=== PATIENT | male | born 1935 | race Caucasian/White ===

== ENCOUNTER 2017-12-06 07:55 | Outpatient (CLI) | payer MEDICARE ==
[2017-12-06 10:30] LABS: BASOPHILS % (AUTO) 0.3 %; EOSINOPHILS # (AUTO) 0.2 10^3/uL (0.0-0.7); EOSINOPHILS % (AUTO) 2.5 %; HGB - HEMOGLOBIN 13.7 g/dL (14.0-18.0); LYMPHOCYTES # (AUTO) 1.9 10^3/uL (1.5-3.5); LYMPHOCYTES % (AUTO) 22.9 %; MEAN CORPUSCULAR HEMOGLOBIN 31.6 pg (27.0-31.0); MEAN CORPUSCULAR HGB CONC 34.2 g/dL (32.0-36.0); MEAN CORPUSCULAR VOLUME 92.4 fL (80.0-94.0); MEAN PLATELET VOLUME 7.5 fL (7.4-11.4); MONOCYTES # (AUTO) 0.6 10^3/uL (0.0-1.0); NEUTROPHILS # (AUTO) 5.6 10^3/uL (1.5-6.6); NEUTROPHILS % (AUTO) 67.3 %; PLT - PLATELET COUNT 207 10^3/uL (130-450); RED BLOOD COUNT 4.34 10^6/uL (4.70-6.10); RED CELL DISTRIBUTION WIDTH 15.5 % (12.0-15.0); WHITE BLOOD COUNT 8.3 x10^3/uL (4.8-10.8)
[2017-12-06 10:45] LABS: ALBUMIN 4.1 g/dL (3.2-5.5); ALBUMIN/GLOBULIN RATIO 1.6 (1.0-2.2); ALKALINE PHOSPHATASE 62 IU/L (42-121); ALT ALANINE AMINOTRANSFERASE 14 IU/L (10-60); AST ASPARTATE AMINOTRANSFERASE 18 IU/L (10-42); BILIRUBIN,TOTAL 0.9 mg/dL (0.2-1.0); BUN - BLOOD UREA NITROGEN 23 mg/dL (6-20); CALCIUM 9.6 mg/dL (8.5-10.3); CARBON DIOXIDE - CO2 29 mmol/L (21-32); CHLORIDE 106 mmol/L (101-111); CHOL/HDL RATIO 3.1 (<5.0); CHOLESTEROL 201 mg/dL; GFR - MDRD 71 (>89); GLUCOSE 100 mg/dL (70-100); HDL CHOLESTEROL 65 mg/dL; LDL CHOLESTEROL,CALCULATED 119 mg/dL; LDL/HDL RATIO 1.8 (<3.6); SODIUM 141 mmol/L (135-145); TOTAL PROTEIN 6.7 g/dL (6.7-8.2); URIC ACID 5.7 mg/dL (2.6-7.2); VLDL CHOLESTEROL 17 mg/dL
== END 2017-12-06 07:56 | disposition home or self-care (01) ==
LOC: LAB.F 07:55
PROVIDERS: ATTEND Internal Medicine
DX: F33.2 Major depressive disorder, recurrent severe without psychotic features (principal); E78.5 Hyperlipidemia, unspecified; M10.9 Gout, unspecified; I10 Essential (primary) hypertension; Z79.899 Other long term (current) drug therapy
CPT/HCPCS: 36415; 80053; 80061; 83721; 84443; 84550; 85025

== ENCOUNTER 2018-02-14 07:36 | Outpatient (CLI) | payer MEDICARE ==
[2018-02-14 11:12] LABS: ALT ALANINE AMINOTRANSFERASE 17 IU/L (10-60); AST ASPARTATE AMINOTRANSFERASE 19 IU/L (10-42); LDL CHOLESTEROL,DIRECT 73 mg/dL
== END 2018-02-14 07:37 | disposition home or self-care (01) ==
LOC: LAB.F 07:36
PROVIDERS: ATTEND Internal Medicine
DX: E78.5 Hyperlipidemia, unspecified (principal)
CPT/HCPCS: 36415; 83721; 84450; 84460

== ENCOUNTER 2018-03-15 07:59 | Outpatient (CLI) | payer MEDICARE ==
[2018-03-15 08:18] LABS: CREATININE 1.1 mg/dL (0.6-1.2)
[2018-03-15] MEDS ORDERED: IOPAMIDOL-300 100 ML VIAL ONE (08:52)
[2018-03-15] MEDS ORDERED: IOPAMIDOL-300 100 ML VIAL IVP ONE (10:33)
--- NOTE | 2018-03-15 13:14 | CT Report ---
Procedure Date: 03/15/2018 Accession Number: [id number] / [id number] Procedure: CT - Abdomen/Pelvis W/WO CPT Code: FULL RESULT: EXAM: Abdomen/Pelvis W/WO DATE: 03/15/2018 10:53 AM CLINICAL HISTORY: HEMATURIA,GROSS COMPARISON: 08/28/2011 TECHNIQUE: Routine helical imaging was performed through the kidneys, ureters and bladder in the precontrast and postcontrast phases, using split bolus technique. IV Contrast: 100 mL Isovue 300 Reconstructions: Coronal and sagittal. In accordance with CT protocol optimization, one or more of the following dose reduction techniques were utilized for this exam: automated exposure control, adjustment of mA and/or KV based on patient size, or use of iterative reconstructive technique. FINDINGS: Lung Bases: Mild atelectasis. Right Kidney/Ureter: 2 mm calculus. Small cortical cysts. No evidence of solid renal mass. Left Kidney/Ureter: Left hydronephrosis and nephrolithiasis, with increase in size of the largest stones in the lower pole, now measuring 1.6 cm. Dilated left renal pelvis, without evidence of an obstructing calculus, similar to previous. Other Solid Organs: The liver, spleen, pancreas, gallbladder, and adrenal glands are unremarkable. The bile ducts are unremarkable. Peritoneal Cavity/Bowel: Normal. No free fluid, free air or adenopathy. No masses. Bowel loops are unremarkable. Pelvic Organs: No bladder stones, obstruction or masses. The visualized pelvic organs are unremarkable. Vasculature: Normal. Bones: Normal. Other: None. IMPRESSION: Left greater than right nephrolithiasis. Left hydronephrosis and dilated renal pelvis, without evidence of an obstructing stone. If not previously performed, consider left retrograde to evaluate for a proximal ureteric lesion. RADIA
== END 2018-03-15 08:00 | disposition home or self-care (01) ==
LOC: DI 07:59
PROVIDERS: ATTEND Internal Medicine
DX: N20.0 Calculus of kidney (principal); N13.30 Unspecified hydronephrosis; Z79.899 Other long term (current) drug therapy
CPT/HCPCS: 36415; 74178; 82565; Q9967

== ENCOUNTER 2018-10-03 12:13 | Outpatient (CLI) | payer MEDICARE ==
[2018-10-03 18:08] LABS: CALCIUM 9.8 mg/dL (8.5-10.3); CREATININE 1.1 mg/dL (0.6-1.2)
== END 2018-10-03 12:14 | disposition home or self-care (01) ==
LOC: LAB.F 12:13
PROVIDERS: ATTEND Internal Medicine
DX: I10 Essential (primary) hypertension (principal)
CPT/HCPCS: 36415; 80048

== ENCOUNTER 2018-10-11 12:07 | Outpatient (CLI) | payer MEDICARE | END 2018-10-11 12:08 | disposition home or self-care (01) | LOC: EMS 12:07 | PROVIDERS: ATTEND Surgery | DX: S01.01XA Laceration without foreign body of scalp, initial encounter (principal); R41.82 Altered mental status, unspecified; R11.0 Nausea; W01.0XXA Fall on same level from slipping, tripping and stumbling without subsequent striking against object, initial encounter; Y92.008 Other place in unspecified non-institutional (private) residence as the place of occurrence of the external cause | CPT/HCPCS: A0425; A0429 ==

== ENCOUNTER 2018-10-11 12:42 | Emergency (ER) | payer MEDICARE ==
--- NOTE | 2018-10-11 12:55 | ED Physician Documentation ---
PD HPI SYNCOPE - Stated complaint Stated Complaint: SYNCOPE - Chief complaint Chief Complaint: General - History obtained from History obtained from: Patient - History of Present Illness Witnessed: Witnessed (he was helping someone carry small furniture and patient says he started to loose footing, stepped backward to try to gain balance, and fell back, striking back of head. Possible moment of LOC. Has some headache. Has marked dizziness/vertigo with ROM of the head after the injury. No vertigo prior.) Timing - onset: Today Preceding symptoms: Other (had tripped and fallen backward, struck back of head.). No: Headache, Light headed Associated symptoms: Headache, Nausea / vomiting (associated with vertigo). No: Seizure, Chest pain, Abdominal pain Contributing factors: No: Recent med change, Decreased PO intake, Noxious stimulae Injury occurred: Fell, Head injury. No: Neck injury Similar symptoms before: Has not had sx before Recently seen: Not recently seen Review of Systems Constitutional: denies: Fever, Chills Nose: denies: Rhinorrhea / runny nose, Congestion Throat: denies: Sore throat Respiratory: denies: Cough GI: reports: Vomiting (just with the vertigo since the fall). denies: Abdominal Pain, Diarrhea PD PAST MEDICAL HISTORY - Past Medical History Cardiovascular: Hypertension Respiratory: None, Other Neuro: None Endocrine/Autoimmune: None GI: None : Benign prostate hypertrophy, Kidney stones, Other HEENT: None Psych: Depression Musculoskeletal: Gout Derm: Other - Past Surgical History Past Surgical History: Yes General: Colonoscopy - Present Medications Home Medications: Ambulatory Orders Medication Instructions Recorded Confirmed Allopurinol 300 mg PO DAILY 01/12/14 07/05/15 Aspirin Chewable [[place]il[place] 324 mg PO ONCE 01/12/14 07/01/15 Aspirin] Losartan [Cozaar] 100 mg PO DAILY 01/12/14 07/05/15 Potassium Chloride [Micro-K] 20 meq PO 0800 01/12/14 07/05/15 Pravastatin Sodium 40 mg PO DAILY 01/12/14 07/05/15 Triamterene/Hydrochlorothiazid 1 tab PO DAILY 01/12/14 07/05/15 [Triamterene-Hctz 37.5-25 mg Tb] Vit D3/Folic Acid/B2/B6/B12 2,000 mg PO DAILY 01/12/14 07/05/15 [Folgard Tablet] Cefpodoxime Proxetil [Vantin] 100 mg PO Q12H #14 tablet 07/09/15 Phenazopyridine HCl [Pyridium] 200 mg PO TID PRN #6 tablet 07/09/15 Meclizine [Antivert] 25 mg PO Q6H PRN #30 tablet 10/11/18 Potassium Bicarbonate 25 meq PO DAILY #30 tablet 10/11/18 [K-Effervescent] - Allergies Allergies/Adverse Reactions: Allergies Allergy/AdvReac Type Severity Reaction Status Date / Time clonidine AdvReac Severe Paranoia Verified 07/09/15 21:59 terazosin AdvReac Intermediate Dizziness Verified 07/09/15 21:59 - Social History Does the pt smoke?: No Smoking Status: Never smoker Does the pt drink ETOH?: Yes Does the pt have substance abuse?: No - Immunizations Immunizations are current?: Yes PD ED PE NORMAL - Vitals Vital signs reviewed: Yes - General General: Alert and oriented X 3, Well developed/nourished, Other (seems okay lying still. Has considerabel vertigo with head movement.) - HEENT HEENT: PERRL, EOMI (some nystagmus looking to the right. ), Pharynx benign, Other (slightly tender in back of head, with small laceration 1 cm, with slight oozing of bllod. No FB. 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, No motor deficit, No sensory deficit, Normal speech Eye Opening: Spontaneous Motor: Obeys Commands Verbal: Oriented GCS Score: 15 Results - Vitals Vitals: Oxygen O2 Source Room air - Labs Labs: Laboratory Tests 10/11/18 10/11/18 13:22 13:22 WBC 7.8 RBC 4.04 L Hgb 13.0 L Hct 36.9 L MCV 91.2 MCH 32.2 H MCHC 35.3 RDW 14.5 Plt Count 184 MPV 7.0 L Neut # (Auto) 5.7 Lymph # (Auto) 1.4 L [place] # (Auto) 0.5 Eos # (Auto) 0.2 Baso # (Auto) 0.0 Absolute Nucleated RBC 0.01 Nucleated RBC % 0.1 Sodium 136 Potassium 3.0 L Chloride 102 Carbon Dioxide 28 Anion Gap 6.0 BUN 26 H Creatinine 1.0 Estimated GFR (MDRD) 71 L Glucose 106 H Calcium 9.2 Magnesium 2.1 Total Bilirubin 0.7 AST 25 ALT 24 Alkaline Phosphatase 66 Total Protein 6.5 L Albumin 3.7 Globulin 2.8 Albumin/Globulin Ratio 1.3 Lipase 33 - Rads (name of study) head CT Radiology: Prelim report reviewed (no acute process), See rad report cervical spine CT Radiology: Prelim report reviewed (no fractures nor acute process), See rad report Procedures - Laceration (location) occiput Length in cm: 1 Wound type: Linear, Into subcut fat, Clean Anesthesia: Lidocaine 1% with epi Wound Preparation: Irrigated copiously NS, Wound explored, To the base. No: FB identified Skin layer closure: Aurelio PD MEDICAL DECISION MAKING - ED course Complexity details: re-evaluated patient (symptoms improved well with time and PO meds. Able to sit and look around comfortable..), considered differential (he had significant post injury vertigo, without other focal symptoms, so seemed like traumatic labyrynthitis rather than cerebellar concussion.), d/w patient Departure - Departure Disposition: 01 Home, Self Care Clinical Impression: Posttraumatic vertigo Fall from slip, trip, or stumble Qualifiers: Encounter type: initial encounter Qualified Code(s): W01.0XXA - Fall on same level from slipping, tripping and stumbling without subsequent striking against object, initial encounter Head contusion Qualifiers: Encounter type: initial encounter Contusion of head detail: scalp Qualified Code(s): S00.03XA - Contusion of scalp, initial encounter Mild concussion Qualifiers: Encounter type: initial encounter Loss of consciousness presence/duration: with LOC of 30 min or less Qualified Code(s): S06.0X1A - Concussion with loss of consciousness of 30 minutes or less, initial encounter Condition: Stable Record reviewed to determine appropriate education?: Yes Instructions: ED Concussion Follow-Up: Juanito Hendrickson MD [Primary Care Provider] - Prescriptions: Meclizine [Antivert] 25 mg PO Q6H PRN #30 tablet PRN Reason: Vertigo Potassium Bicarbonate [K-Effervescent] 25 meq PO DAILY #30 tablet Comments: My suture care instructions staple removal 8-10 days. Your potassium was slightly low and you can add a potassium supplement. I wrote a prescription and see if it is cheaper than the other ones you are getting. For the dizziness, use meclizine every 6-8 hours if needed. Get up and move around slowly for the next few days until the irritation of the inner ear from the injury dissipates. Recheck if not better over the next few days or so. Discharge Date/Time: 10/11/18 16:39
[2018-10-11] MEDS ORDERED: LORazepam 2 MG/ML VIAL IVP STA (13:22)
[2018-10-11] MEDS ORDERED: MECLIZINE 12.5 MG TABLET PO STA (13:22)
[2018-10-11 13:33] LABS: BASOPHILS % (AUTO) 0.5 %; EOSINOPHILS # (AUTO) 0.2 10^3/uL (0.0-0.7); EOSINOPHILS % (AUTO) 2.2 %; LYMPHOCYTES # (AUTO) 1.4 10^3/uL (1.5-3.5); LYMPHOCYTES % (AUTO) 18.3 %; MEAN CORPUSCULAR HEMOGLOBIN 32.2 pg (27.0-31.0); MEAN CORPUSCULAR HGB CONC 35.3 g/dL (32.0-36.0); MEAN CORPUSCULAR VOLUME 91.2 fL (80.0-94.0); MONOCYTES # (AUTO) 0.5 10^3/uL (0.0-1.0); MONOCYTES % (AUTO) 6.3 %; NEUTROPHILS # (AUTO) 5.7 10^3/uL (1.5-6.6); NEUTROPHILS % (AUTO) 72.7 %; PLT - PLATELET COUNT 184 10^3/uL (130-450); RED BLOOD COUNT 4.04 10^6/uL (4.70-6.10); RED CELL DISTRIBUTION WIDTH 14.5 % (12.0-15.0); WHITE BLOOD COUNT 7.8 x10^3/uL (4.8-10.8)
[2018-10-11 13:46] LABS: ALBUMIN 3.7 g/dL (3.2-5.5); ALBUMIN/GLOBULIN RATIO 1.3 (1.0-2.2); BILIRUBIN,TOTAL 0.7 mg/dL (0.2-1.0); CALCIUM 9.2 mg/dL (8.5-10.3); MAGNESIUM 2.1 mg/dL (1.7-2.8); TOTAL PROTEIN 6.5 g/dL (6.7-8.2)
[2018-10-11] MEDS ORDERED: POTASSIUM BICARB 25 MEQ TABLET PO STA (14:38)
--- NOTE | 2018-10-11 14:42 | CT Report ---
Reason: fell carrying furniture, struck back of head Procedure Date: 10/11/2018 Accession Number: [id number] / [id number] Procedure: CT - Cervical Spine W/O CPT Code: FULL RESULT: EXAM: CT CERVICAL SPINE WITHOUT CONTRAST DATE: 10/11/2018 02:24 PM. HISTORY: Fell carrying furniture, struck back of head. COMPARISONS: None. TECHNIQUE: Thin-section axial images were acquired of the cervical spine without contrast. Post-processing: Coronal and sagittal reformats. Other: None. In accordance with CT protocol optimization, one or more of the following dose reduction techniques were utilized for this exam: automated exposure control, adjustment of mA and/or KV based on patient size, or use of iterative reconstructive technique. FINDINGS: Alignment: No evidence of dislocation. Bones: No fracture or bone lesion. 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 Spinal canal: No significant abnormalities are seen. Other: No evidence of prevertebral soft tissue swelling or apical pneumothorax. IMPRESSION: No evidence of cervical spine fracture or dislocation. RADIA
--- NOTE | 2018-10-11 14:43 | CT Report ---
Reason: fell carrying furniture, struck back of head Procedure Date: 10/11/2018 Accession Number: [id number] / [id number] Procedure: CT - Head W/O CPT Code: FULL RESULT: EXAM: CT HEAD EXAM DATE: 10/11/2018 02:08 PM. CLINICAL HISTORY: Fell carrying furniture, struck back of head. COMPARISON: None. TECHNIQUE: Multiaxial CT images were obtained from the foramen magnum to the vertex. Reformats: Sagittal and coronal. IV contrast: None. In accordance with CT protocol optimization, one or more of the following dose reduction techniques were utilized for this exam: automated exposure control, adjustment of mA and/or KV based on patient size, or use of iterative reconstructive technique. FINDINGS: Parenchyma: No intraparenchymal hemorrhage. No evidence of mass, midline shift, or CT findings of infarction. Proctor-white differentiation is distinct. Extraaxial Spaces: Normal for age. No subdural or epidural collections identified. Ventricles: Normal in size and position. Sinuses and Orbits: There is mild opacification of the left ethmoid sinuses. Bones: No evidence of fracture or calvarial defect. Other: None. IMPRESSION: No acute intracranial CT abnormality. RADIA
[2018-10-11 16:38] VITALS: BP 169/89
== END 2018-10-11 16:39 | disposition home or self-care (01) ==
LOC: EDUNIT# → ED 12:42
DX: S06.0X1A Concussion with loss of consciousness of 30 minutes or less, initial encounter (principal); S01.01XA Laceration without foreign body of scalp, initial encounter; R42 Dizziness and giddiness; W01.10XA Fall on same level from slipping, tripping and stumbling with subsequent striking against unspecified object, initial encounter; Y93.89 Activity, other specified; I10 Essential (primary) hypertension; Z79.82 Long term (current) use of aspirin
CPT/HCPCS: 12001; 36415; 70450; 72125; 80053; 83690; 83735; 85025; 93005; 96374; 99284; A9270; J2060

== ENCOUNTER 2019-07-07 08:00 | Outpatient (CLI) | payer MEDICARE | END 2019-07-07 23:59 | disposition home or self-care (01) | LOC: LAB.R 08:00 | PROVIDERS: ATTEND Registered Nurse | DX: L03.317 Cellulitis of buttock (principal) | CPT/HCPCS: 87070; 87075; 87147; 87186; 87205 ==

== ENCOUNTER 2019-08-01 08:54 | Outpatient (CLI) | payer MEDICARE ==
[2019-08-01 17:24] LABS: BASOPHILS % (AUTO) 0.4 %; EOSINOPHILS # (AUTO) 0.2 10^3/uL (0.0-0.7); EOSINOPHILS % (AUTO) 2.7 %; HGB - HEMOGLOBIN 14.1 g/dL (14.0-18.0); LYMPHOCYTES % (AUTO) 24.1 %; MEAN CORPUSCULAR HEMOGLOBIN 31.9 pg (27.0-31.0); MEAN CORPUSCULAR HGB CONC 32.4 g/dL (32.0-36.0); MEAN CORPUSCULAR VOLUME 98.4 fL (80.0-94.0); MEAN PLATELET VOLUME 10.4 fL (7.4-11.4); MONOCYTES # (AUTO) 0.6 10^3/uL (0.0-1.0); MONOCYTES % (AUTO) 7.2 %; NEUTROPHILS # (AUTO) 5.4 10^3/uL (1.5-6.6); NEUTROPHILS % (AUTO) 65.1 %; PLT - PLATELET COUNT 199 10^3/uL (130-450); RED BLOOD COUNT 4.42 10^6/uL (4.70-6.10); RED CELL DISTRIBUTION WIDTH 14.5 % (12.0-15.0); WHITE BLOOD COUNT 8.2 x10^3/uL (4.8-10.8)
[2019-08-01 17:37] LABS: ALBUMIN 4.1 g/dL (3.2-5.5); ALBUMIN/GLOBULIN RATIO 1.4 (1.0-2.2); ALKALINE PHOSPHATASE 76 IU/L (42-121); ALT ALANINE AMINOTRANSFERASE 17 IU/L (10-60); AST ASPARTATE AMINOTRANSFERASE 20 IU/L (10-42); BILIRUBIN,TOTAL 0.9 mg/dL (0.2-1.0); BUN - BLOOD UREA NITROGEN 24 mg/dL (6-20); CALCIUM 9.7 mg/dL (8.5-10.3); CARBON DIOXIDE - CO2 29 mmol/L (21-32); CHLORIDE 105 mmol/L (101-111); CHOL/HDL RATIO 2.4 (<5.0); CHOLESTEROL 177 mg/dL; GFR - MDRD 71 (>89); GLUCOSE 101 mg/dL (70-100); HDL CHOLESTEROL 73 mg/dL; LDL CHOLESTEROL,CALCULATED 80 mg/dL; LDL/HDL RATIO 1.1 (<3.6); SODIUM 140 mmol/L (135-145); VLDL CHOLESTEROL 24 mg/dL
[2019-08-01 17:39] LABS: HB2 TOTAL 14.2 g/dL; HEMOGLOBIN A1C 0.57 g/dL; HEMOGLOBIN A1C % 5.8 % (4.6-6.2)
== END 2019-08-01 08:55 | disposition home or self-care (01) ==
LOC: LAB.S 08:54
PROVIDERS: ATTEND Registered Nurse
DX: F32.9 Major depressive disorder, single episode, unspecified (principal); F41.9 Anxiety disorder, unspecified; E87.6 Hypokalemia; E78.5 Hyperlipidemia, unspecified; I10 Essential (primary) hypertension; R31.0 Gross hematuria
CPT/HCPCS: 36415; 80053; 80061; 83036; 83721; 84443; 85025

== ENCOUNTER 2020-12-31 11:20 | Outpatient (CLI) | payer MEDICARE ==
[2020-12-31 16:23] LABS: ALBUMIN 4.2 g/dL (3.2-5.5); ALBUMIN/GLOBULIN RATIO 1.6 (1.0-2.2); ALKALINE PHOSPHATASE 62 IU/L (42-121); ALT ALANINE AMINOTRANSFERASE 14 IU/L (10-60); AST ASPARTATE AMINOTRANSFERASE 16 IU/L (10-42); BUN - BLOOD UREA NITROGEN 29 mg/dL (6-20); CALCIUM 10.1 mg/dL (8.5-10.3); CARBON DIOXIDE - CO2 27 mmol/L (21-32); CHLORIDE 106 mmol/L (101-111); CHOL/HDL RATIO 2.7 (<5.0); CHOLESTEROL 187 mg/dL; CREATININE 1.1 mg/dL (0.6-1.2); GFR - MDRD 63 (>89); GLUCOSE 101 mg/dL (70-100); HDL CHOLESTEROL 70 mg/dL; LDL CHOLESTEROL,CALCULATED 101 mg/dL; LDL/HDL RATIO 1.4 (<3.6); POTASSIUM 3.8 mmol/L (3.5-5.0); SODIUM 140 mmol/L (135-145); TOTAL PROTEIN 6.8 g/dL (6.7-8.2); TRIGLYCERIDES 80 mg/dL; VLDL CHOLESTEROL 16 mg/dL
[2020-12-31 16:25] LABS: THYROID STIMULATING HORMONE 2.62 uIU/mL (0.34-5.60)
== END 2020-12-31 11:21 | disposition home or self-care (01) ==
LOC: LAB.S 11:20
PROVIDERS: ATTEND Family Medicine
DX: R41.89 Other symptoms and signs involving cognitive functions and awareness (principal); I10 Essential (primary) hypertension; E78.2 Mixed hyperlipidemia; E55.9 Vitamin D deficiency, unspecified
CPT/HCPCS: 36415; 80053; 80061; 81599; 82306; 82607; 82746; 83721; 84443

== ENCOUNTER 2022-06-17 07:19 | Emergency (ER) | payer MEDICARE ==
[2022-06-17] MEDS ORDERED: SODIUM CHLORIDE 0.9% 500 ML IV STA (07:44)
[2022-06-17] MEDS ORDERED: ONDANSETRON 4 MG/2 ML VIAL IVP STA (07:44)
[2022-06-17] MEDS ORDERED: MORPHINE 2 MG/ML CARPUJECT IVP STA ×2 (07:44→08:45)
--- NOTE | 2022-06-17 07:47 | ED Physician Documentation ---
PD HPI ABD PAIN - Stated complaint Stated Complaint: L SIDE PAIN - Chief complaint Chief Complaint: Abd Pain - History obtained from History obtained from: Patient - Additional information Additional information: Patient is an 86-year-old male with an ongoing history of hematuria that he sees a urologist in [place] for presenting for evaluation of left lower quadrant pain that started at 4:00 in the morning. Pain does at times wraparound to his back but otherwise stays mostly in the left lower quadrant. He describes it as sharp. Nothing makes it better or worse. He denies associated nausea or vomiting. He does report a history of constipation and use laxatives. His last bowel movement was a few days ago. He has been able to urinate without difficulty but has noticed more blood in his urine for the last 2 days.He reports having had a number of previous cystoscopies with no clear etiology for his hematuria. He takes a baby aspirin.He denies fever, chest pain, difficulty breathing, dizziness. Review of Systems Constitutional: denies: Fever Nose: denies: Congestion Cardiac: denies: Chest pain / pressure Respiratory: denies: Dyspnea GI: reports: Abdominal Pain. denies: Nausea, Vomiting, Diarrhea : reports: Hematuria. denies: Dysuria Skin: denies: Rash Musculoskeletal: reports: Neck pain. denies: Extremity pain Neurologic: denies: Headache PD PAST MEDICAL HISTORY - Past Medical History Cardiovascular: Hypertension Respiratory: None, Other Neuro: None Endocrine/Autoimmune: None GI: None : Benign prostate hypertrophy, Kidney stones, Other HEENT: None Psych: Depression Musculoskeletal: Gout Derm: Other - Past Surgical History Past Surgical History: Yes General: Colonoscopy - Present Medications Home Medications: Ambulatory Orders Medication Instructions Recorded Confirmed Aspirin Chewable [[place] Denilson 324 mg PO ONCE 01/12/14 06/17/22 Aspirin] Losartan [Cozaar] 100 mg PO DAILY 01/12/14 06/17/22 Potassium Chloride [Micro-K] 20 meq PO 0800 01/12/14 06/17/22 Pravastatin Sodium 40 mg PO DAILY 01/12/14 06/17/22 Triamterene/Hydrochlorothiazid 1 tab PO DAILY 01/12/14 06/17/22 [Triamterene-Hctz 37.5-25 mg Tb] Vit D3/Folic Acid/B2/B6/B12 2,000 mg PO DAILY 01/12/14 06/17/22 [Folgard Tablet] allopurinoL [Allopurinol] 300 mg PO DAILY 01/12/14 06/17/22 Colchicine [Colcrys] 0.6 mg PO TID PRN 06/17/22 06/17/22 Docusate Sodium [Dulcolax Stool 100 mg PO BID #14 cap 06/17/22 Softener] Finasteride [Proscar] 5 mg PO DAILY 06/17/22 06/17/22 Metoprolol Tartrate [Lopressor] 25 mg PO DAILY 06/17/22 06/17/22 Oxycodone HCl/Acetaminophen 1 each PO Q6H PRN #10 tablet 06/17/22 [Percocet 5-325 mg Tablet] Sulfamethox/Trimeth 800/160 1 each PO BID #14 tablet 06/17/22 [Bactrim Ds 800/160] - Allergies Allergies/Adverse Reactions: Allergies Allergy/AdvReac Type Severity Reaction Status Date / Time clonidine AdvReac Severe Paranoia Verified 06/17/22 07:35 terazosin AdvReac Intermediate Dizziness Verified 06/17/22 07:35 - Social History Does the pt smoke?: No Smoking Status: Never smoker Does the pt drink ETOH?: Yes Does the pt have substance abuse?: No - Immunizations Immunizations are current?: Yes PD ED PE NORMAL - General General: Alert and oriented X 3, No acute distress, Well developed/nourished - HEENT HEENT: Atraumatic, Moist mucous membranes - Neck Neck: Supple, no meningeal sign - Cardiac Cardiac: RRR, No murmur, Strong equal pulses - Respiratory Respiratory: No respiratory distress, Clear bilaterally - Abdomen Abdomen: Soft, Non distended. No: Non tender (Left lower quadrant tenderness to palpation, no rebound, no guarding, no masses or hernias) - Back Back: No CVA TTP - Derm Derm: Warm and dry - Extremities Extremities: No edema - Neuro Neuro: Normal speech Results - Vitals Vitals: Vital Signs - 24 hr 06/17/22 06/17/22 07:23 09:38 Temperature 37.2 C Heart Rate 75 69 Respiratory 13 12 Rate Blood Pressure 164/85 H 144/82 H O2 Saturation 100 98 Oxygen O2 Source Room air - Labs Labs: Laboratory Tests 06/17/22 06/17/22 06/17/22 07:40 07:40 08:56 WBC 9.9 RBC 3.76 L Hgb 12.3 L Hct 36.0 L MCV 95.7 H MCH 32.7 H MCHC 34.2 RDW 14.3 Plt Count 194 MPV 9.2 Neut # (Auto) 8.0 H Lymph # (Auto) 1.1 L [place] # (Auto) 0.6 Eos # (Auto) 0.2 Baso # (Auto) 0.0 Absolute Nucleated RBC 0.00 Nucleated RBC % 0.0 Sodium 137 Potassium 3.9 Chloride 102 Carbon Dioxide 27 Anion Gap 8.0 BUN 29 H Creatinine 1.5 H Estimated GFR (MDRD) 44 L Glucose 157 H Calcium 10.4 H Total Bilirubin 0.5 AST 17 ALT 13 Alkaline Phosphatase 76 Total Protein 6.7 Albumin 3.8 Globulin 2.9 Albumin/Globulin Ratio 1.3 Lipase 43 Urine Color RED/BLOODY Urine Clarity CLOUDY Urine pH 6.5 Ur Specific [place] >=1.030 H Urine Protein 100 H Urine Glucose (UA) NEGATIVE Urine Ketones NEGATIVE Urine Occult Blood LARGE H Urine Nitrite NEGATIVE Urine Bilirubin NEGATIVE Urine Urobilinogen 0.2 (NORMAL) Ur Leukocyte Esterase NEGATIVE Urine RBC TNTC H Urine WBC 0-3 Ur Squamous Epith Cells NONE SEEN Urine Bacteria Moderate H Ur Microscopic Review INDICATED Urine Culture Comments NOT INDICATED PD MEDICAL DECISION MAKING - ED course Complexity details: reviewed results, re-evaluated patient, d/w patient ED course: Patient with left-sided abdominal pain and gross hematuria. Vital signs are stable and labs reviewed. Mild elevation in creatinine. CT scan without acute findings. Patient does have a history of left-sided hydronephrosis which is unchanged since 2018. He does have gross hematuria but no urinary retention. Reviewed his presentation with [place] [facility] who recommends close outpatient follow-up. Reviewed recommendations with patient as well as concerning symptoms to return for. 1003 - Discussed patient's presentation as well as CT findings and lab results along with urine results with Dr. Washington ([place] [facility]). He recommends holding off on a Lawrence catheter as patient does not have signs of urinary retention. He encourages patient to continue with p.o. hydration. He agrees with plan for prophylactic antibiotics as there is bacteria in the urine and recommends patient call his urologist on Sunday for close outpatient follow-up. Departure - Departure Disposition: 01 Home, Self Care Clinical Impression: Left sided abdominal pain, Gross hematuria Condition: Stable Instructions: ED Hematuria, ED Abdominal Pain Unkn Cause Male Follow-Up: [facility] [Provider Group] [facility] [Provider Group] Prescriptions: Sulfamethox/Trimeth 800/160 [Bactrim Ds 800/160] 1 each PO BID #14 tablet Docusate Sodium [Dulcolax Stool Softener] 100 mg PO BID #14 cap Oxycodone HCl/Acetaminophen [Percocet 5-325 mg Tablet] 1 each PO Q6H PRN #10 tablet PRN Reason: pain Comments: You were evaluated for left-sided abdominal pain and worsening blood in your urine. Your labs were overall similar to previous.Your CT scan also did not reveal a cause for your pain. There was a small nodule seen in your right a drenal gland and the radiologist recommends an outpatient MRI to evaluate for this spot (1.7 cm right adrenal nodule. Consider follow-up nonemergent adrenal protocol MR. ). Your urine has a large amount of blood in it. I spoke to the on-call urologist, Dr. Washington who recommends holding off on a catheter at this time, having you continue to hydrate with fluids, and Agrees with plan to have you on an antibiotic in case there is an infection. Please call your urologist office on Sunday for close follow-up. I have sent prescriptions to [facility] in [place]. I am prescribing a short course of narcotic pain medication for you. These are potentially dangerous and addictive medications that should be used carefully. These medications may constipate you. Take an hhoo-wmt-udcxlwv stool softener (docusate) twice daily with plenty of water while taking these medications. If you go 24 hours without a bowel movement, take mvqo-dvy-ercfvyk miralax, per package instructions. Do not drink or drive while taking these medications. If you received narcotic or sedating medications while in the emergency department, do not drive for 24 hours. Store this medication in a safe, secure place and out of reach of children. It is a violation of federal law to give or sell this medication to another person or to use in a manner other than prescribed. The ED will not refill narcotic prescriptions, including prescriptions lost or stolen. To dispose of unwanted medications: 1. [facility] [address] in [place] has a medication drop box. They accept prescription medications (in pill form) Sunday through Sunday 9:00 a.m. to 5:00 p.m. 2. The [facility] [employer] accepts prescription medications (in pill form only) for disposal year round. Call for more information. 3. Contact the [facility] for the next [facility] sponsored prescription drug collection event. , [phone], or [phone]; Note that many narcotic pain relievers also contain Tylenol/acetaminophen. Please ensure that your total dose of acetaminophen from all sources does not exceed 3 g (3000 mg) per day. Discharge Date/Time: 06/17/22 10:40
[2022-06-17 07:51] LABS: BASOPHILS % (AUTO) 0.2 %; EOSINOPHILS # (AUTO) 0.2 10^3/uL (0.0-0.7); EOSINOPHILS % (AUTO) 1.7 %; HGB - HEMOGLOBIN 12.3 g/dL (14.0-18.0); LYMPHOCYTES # (AUTO) 1.1 10^3/uL (1.5-3.5); LYMPHOCYTES % (AUTO) 11.1 %; MEAN CORPUSCULAR HEMOGLOBIN 32.7 pg (27.0-31.0); MEAN CORPUSCULAR HGB CONC 34.2 g/dL (32.0-36.0); MEAN CORPUSCULAR VOLUME 95.7 fL (80.0-94.0); MEAN PLATELET VOLUME 9.2 fL (7.4-11.4); MONOCYTES # (AUTO) 0.6 10^3/uL (0.0-1.0); MONOCYTES % (AUTO) 5.5 %; NEUTROPHILS % (AUTO) 81.2 %; PLT - PLATELET COUNT 194 10^3/uL (130-450); RED BLOOD COUNT 3.76 10^6/uL (4.70-6.10); RED CELL DISTRIBUTION WIDTH 14.3 % (12.0-15.0); WHITE BLOOD COUNT 9.9 x10^3/uL (4.8-10.8)
[2022-06-17 08:01] LABS: ALBUMIN 3.8 g/dL (3.2-5.5); ALBUMIN/GLOBULIN RATIO 1.3 (1.0-2.2); BILIRUBIN,TOTAL 0.5 mg/dL (0.2-1.0); CALCIUM 10.4 mg/dL (8.5-10.3); CREATININE 1.5 mg/dL (0.6-1.2); POTASSIUM 3.9 mmol/L (3.5-5.0); TOTAL PROTEIN 6.7 g/dL (6.7-8.2)
--- NOTE | 2022-06-17 09:11 | CT Report ---
PROCEDURE: Macro CT abdomen and pelvis with contrast INDICATIONS: LLQ abd pain; history of ongoing hematuria CONTRAST: IV CONTRAST: Optiray 320 ml: 100 PO CONTRAST: *NO PO CONTRAST TECHNIQUE: After the administration of contrast, 5 mm thick sections acquired from the diaphragms to the sym physis. 5 mm thick coronal and sagittal reformats were acquired. For radiation dose reduction, the following was used: automated exposure control, adjustment of mA and/or kV according to patient size . COMPARISON: 03/15/2018 FINDINGS: Lower thorax: The lung bases are clear. Heart size normal. Coronary artery vascular calcification N o hiatal hernia. Liver: Normal in size and attenuation. No contour deformity present. Bilateral renal cysts measure u p to 2.1 cm Biliary system: No calcified cholelithiasis or pericholecystic inflammation. No evidence of bile du ct dilatation. Pancreas: Unremarkable without mass or inflammation evident. Spleen: Normal in size and density. Adrenals: 1.7 cm right adrenal nodule is hypodense and similar the prior Reproductive system: Unremarkable as visualized. Urinary system: Severe left-sided hydronephrosis and hydroureter with renal cortical atrophy and mult iple calculi similar the prior exam. No right-sided hydronephrosis. Gastrointestinal system: The bowel appears unremarkable with no evidence of bowel obstruction or inf lammation. The stomach appears unremarkable. Moderate to fecal debris present throughout the colon. N o evidence of diverticulosis. Appendix: No findings to suggest acute appendicitis. Peritoneal spaces: No mesenteric or retroperitoneal adenopathy. No free air. No free fluid. Vasculature: The described vascular calcification calcification noted involving the abdominal aorta w ithout evidence of aneurysm. Musculoskeletal: Normal bone mineralization. No acute fractures. Left inguinal hernia contains fat without bowel involvement. Multilevel degenerative disc disease and arthropathy in the lumbar spine. IMPRESSION: 1. Severe left renal hydronephrosis and multiple renal calculi with cortical atrophy, similar the marco or exam 2018. 2. Left inguinal hernia contains fat without bowel involvement. No bowel obstruction. 3. 1.7 cm right adrenal nodule. Consider follow-up nonemergent adrenal protocol MR. Reviewed by: Ryan Mccabe MD on 06/17/2022 8:10 AM SHANTELLE Approved by: Ryan Mccabe MD on 06/17/2022 8:10 AM AKDT Station ID: [id number]
[2022-06-17 09:21] LABS: BILIRUBIN,URINE NEGATIVE (NEGATIVE); GLUCOSE, URINE (UA) NEGATIVE (NEGATIVE); KETONES,URINE (UA) NEGATIVE (NEGATIVE); LEUKOCYTE ESTERASE, URINE NEGATIVE (NEGATIVE); NITRITE,URINE NEGATIVE (NEGATIVE); OCCULT BLOOD,URINE LARGE (NEGATIVE); PH,URINE 6.5 PH (5.0-7.5); PROTEIN,URINE 100 mg/dL (NEGATIVE); UROBILINOGEN,URINE 0.2 (NORMAL) E.U./dL (NORMAL)
[2022-06-17 09:25] LABS: CLARITY,URINE CLOUDY (CLEAR)
[2022-06-17 09:34] LABS: BACTERIA,URINE Moderate /HPF (None Seen); RBC,URINE TNTC /HPF (0-5); SQUAMOUS EPITHELIAL CELL,UR NONE SEEN (<= Few); WBC,URINE 0-3 /HPF (0-3)
[2022-06-17 09:57] VITALS: BP 144/82
== END 2022-06-17 10:40 | disposition home or self-care (01) ==
LOC: ED 07:19
DX: R10.32 Left lower quadrant pain (principal); R31.0 Gross hematuria; I10 Essential (primary) hypertension
CPT/HCPCS: 36415; 51798; 74177; 80053; 81001; 83690; 85025; 96374; 96376; 99284; Q9967; 81003; 87086

== ENCOUNTER 2022-07-08 23:49 | Emergency (ER) | payer MEDICARE ==
--- NOTE | 2022-07-09 00:52 | ED Physician Documentation ---
PD HPI MALE - Stated complaint Stated Complaint: MALE - Chief complaint Chief Complaint: Abd Pain - History obtained from History obtained from: Patient - History of Present Illness Timing - onset: Yesterday Timing - details: Gradual onset, Waxing and waning Pain level max: 10 Pain level now: 8 Associated symptoms: Hematuria Recently seen: Surgery - Additional information Additional information: Patient says he had urologic procedure 2 days ago. He says a growth was removed from his prostate via an instrument inserted into his penis/urethra. He says that since the procedure he has had increasingly frequent and intense penile pain. He has been able to urinate albeit small amounts at a time and the pain seems to be worse when he has urine output. He does not feel like he is unable to urinate/retaining urine. He says he has had blood in his urine for nearly two years but has not had this pain in the past Review of Systems Constitutional: denies: Fever, Chills, Sweats GI: denies: Abdominal Pain, Nausea, Vomiting : reports: Dysuria, Hematuria. denies: Frequency, Unable to Void PD PAST MEDICAL HISTORY - Past Medical History Cardiovascular: Hypertension Respiratory: None, Other Neuro: None Endocrine/Autoimmune: None GI: None : Benign prostate hypertrophy, Kidney stones, Other HEENT: None Psych: Depression Musculoskeletal: Gout Derm: Other - Past Surgical History Past Surgical History: Yes General: Colonoscopy - Present Medications Home Medications: Ambulatory Orders Medication Instructions Recorded Confirmed Aspirin Chewable [[place] 324 mg PO ONCE 01/12/14 06/17/22 Aspirin] Losartan [Cozaar] 100 mg PO DAILY 01/12/14 06/17/22 Potassium Chloride [Micro-K] 20 meq PO 0800 01/12/14 06/17/22 Pravastatin Sodium 40 mg PO DAILY 01/12/14 06/17/22 Triamterene/Hydrochlorothiazid 1 tab PO DAILY 01/12/14 06/17/22 [Triamterene-Hctz 37.5-25 mg Tb] Vit D3/Folic Acid/B2/B6/B12 2,000 mg PO DAILY 01/12/14 06/17/22 [Folgard Tablet] allopurinoL [Allopurinol] 300 mg PO DAILY 01/12/14 06/17/22 Colchicine [Colcrys] 0.6 mg PO TID PRN 06/17/22 06/17/22 Docusate Sodium [Dulcolax Stool 100 mg PO BID #14 cap 06/17/22 Softener] Finasteride [Proscar] 5 mg PO DAILY 06/17/22 06/17/22 Metoprolol Tartrate [Lopressor] 25 mg PO DAILY 06/17/22 06/17/22 Oxycodone HCl/Acetaminophen 1 each PO Q6H PRN #10 tablet 06/17/22 [Percocet 5-325 mg Tablet] Sulfamethox/Trimeth 800/160 1 each PO BID #14 tablet 06/17/22 [Bactrim Ds 800/160] - Allergies Allergies/Adverse Reactions: Allergies Allergy/AdvReac Type Severity Reaction Status Date / Time clonidine AdvReac Severe Paranoia Verified 07/09/22 18:31 terazosin AdvReac Intermediate Dizziness Verified 07/09/22 18:31 - Social History Does the pt smoke?: No Smoking Status: Never smoker Does the pt drink ETOH?: Yes Does the pt have substance abuse?: No - Immunizations Immunizations are current?: Yes PD ED PE NORMAL - Vitals Vital signs reviewed: Yes - General General: Alert and oriented X 3, Well developed/nourished, Other (during H+P patient has episodes of obvious painful distress lasting less than a minute but recurring every few minutes) - Respiratory Respiratory: No respiratory distress, Clear bilaterally - Abdomen Abdomen: Soft, Non tender - Back Back: No CVA TTP PD ED PE EXPANDED - Male Male : Normal Exam Results - Vitals Vitals: Oxygen O2 Source Room air - Labs Labs: Laboratory Tests 07/09/22 07/09/22 07/09/22 01:23 01:23 04:09 WBC 10.0 RBC 3.57 L Hgb 11.2 L Hct 33.2 L MCV 93.0 MCH 31.4 H MCHC 33.7 RDW 14.3 Plt Count 240 MPV 9.0 Neut # (Auto) 7.5 H Lymph # (Auto) 1.7 Storey # (Auto) 0.7 Eos # (Auto) 0.1 Baso # (Auto) 0.0 Absolute Nucleated RBC 0.00 Nucleated RBC % 0.0 Sodium 134 L Potassium 3.2 L Chloride 99 L Carbon Dioxide 24 Anion Gap 11.0 BUN 35 H Creatinine 1.7 H Estimated GFR (MDRD) 38 L Glucose 98 Calcium 10.2 Total Bilirubin 0.8 AST 22 ALT 12 Alkaline Phosphatase 67 Total Protein 7.2 Albumin 4.0 Globulin 3.2 Albumin/Globulin Ratio 1.3 Lipase 51 Urine Color YELLOW Urine Clarity BLOODY Urine pH 5.5 Ur Specific [place] 1.020 Urine Protein 100 H Urine Glucose (UA) NEGATIVE Urine Ketones NEGATIVE Urine Occult Blood LARGE H Urine Nitrite NEGATIVE Urine Bilirubin NEGATIVE Urine Urobilinogen 0.2 (NORMAL) Ur Leukocyte Esterase NEGATIVE Urine RBC TNTC H Urine WBC 0-3 Ur Squamous Epith Cells NONE SEEN Urine Bacteria Rare Ur Microscopic Review INDICATED Urine Culture Comments NOT INDICATED PD MEDICAL DECISION MAKING - ED course Complexity details: reviewed results, re-evaluated patient, considered differential, d/w patient ED course: presents with waxing and waning pain which he says is limited to penile pain. he is nontender on abdominal exam, no penile tenderness nor swelling/hematoma. There is less than 300cc on bladder scan; he is understandably reluctant to have marquez catheter placed and given the volume on bladder scan, he is initially treated with IV morphine in small doses until I was able to contact his urology group. I discussed the case with Dr. Whitlock (covering for patient's urologist, Dr. Jansen). He recommends insertion of coude catheter, as this presentation is suggestive of bladder spasms. I explained this to patient and he is receptive to the catheter. ED RN placed coude catheter without difficulty and patient had im mediate relief of symptoms without recurrence for remainder of ED observation. Discharged with catheter in place. UA does not suggest infection and blood tests are also unremarkable. Return precautions d/w patient. Departure - Departure Disposition: 01 Home, Self Care Clinical Impression: Bladder spasms Condition: Good Instructions: ED Catheter Care Marquez Comments: I discussed your symptoms with Dr. Whitlock (urologist covering for Dr. Jansen). He suspects you are having bladder spasms, which is not uncommon after the procedure you had. He recommended insertion of the catheter, and this seems to have eliminated your symptoms. He recommends the catheter be kept in place until you follow up with your urologist. The catheter might need to stay in place for a week or more, but you need to follow up with the urologist within the next 3-5 days for reevaluation. Discharge Date/Time: 07/09/22 07:07
[2022-07-09] MEDS ORDERED: MORPHINE 2 MG/ML CARPUJECT IVP STA ×2 (01:12→02:05)
[2022-07-09 01:33] LABS: BASOPHILS % (AUTO) 0.4 %; EOSINOPHILS # (AUTO) 0.1 10^3/uL (0.0-0.7); EOSINOPHILS % (AUTO) 1.1 %; HCT - HEMATOCRIT 33.2 % (42.0-52.0); HGB - HEMOGLOBIN 11.2 g/dL (14.0-18.0); LYMPHOCYTES # (AUTO) 1.7 10^3/uL (1.5-3.5); LYMPHOCYTES % (AUTO) 16.7 %; MEAN CORPUSCULAR HEMOGLOBIN 31.4 pg (27.0-31.0); MEAN CORPUSCULAR HGB CONC 33.7 g/dL (32.0-36.0); MONOCYTES # (AUTO) 0.7 10^3/uL (0.0-1.0); NEUTROPHILS # (AUTO) 7.5 10^3/uL (1.5-6.6); NEUTROPHILS % (AUTO) 74.5 %; PLT - PLATELET COUNT 240 10^3/uL (130-450); RED BLOOD COUNT 3.57 10^6/uL (4.70-6.10); RED CELL DISTRIBUTION WIDTH 14.3 % (12.0-15.0)
[2022-07-09 01:48] LABS: ALBUMIN/GLOBULIN RATIO 1.3 (1.0-2.2); BILIRUBIN,TOTAL 0.8 mg/dL (0.2-1.0); CALCIUM 10.2 mg/dL (8.5-10.3); CREATININE 1.7 mg/dL (0.6-1.2); POTASSIUM 3.2 mmol/L (3.5-5.0); TOTAL PROTEIN 7.2 g/dL (6.7-8.2)
[2022-07-09] MEDS ORDERED: LIDOCAINE 2% URO-JET 5 ML SYRINGE UR STA (02:05)
[2022-07-09 04:21] LABS: BILIRUBIN,URINE NEGATIVE (NEGATIVE); GLUCOSE, URINE (UA) NEGATIVE (NEGATIVE); KETONES,URINE (UA) NEGATIVE (NEGATIVE); LEUKOCYTE ESTERASE, URINE NEGATIVE (NEGATIVE); NITRITE,URINE NEGATIVE (NEGATIVE); OCCULT BLOOD,URINE LARGE (NEGATIVE); PH,URINE 5.5 PH (5.0-7.5); PROTEIN,URINE 100 mg/dL (NEGATIVE); UROBILINOGEN,URINE 0.2 (NORMAL) E.U./dL (NORMAL)
[2022-07-09 04:27] LABS: BACTERIA,URINE Rare /HPF (None Seen); CLARITY,URINE BLOODY (CLEAR); RBC,URINE TNTC /HPF (0-5); SQUAMOUS EPITHELIAL CELL,UR NONE SEEN (<= Few); WBC,URINE 0-3 /HPF (0-3)
[2022-07-09 06:31] VITALS: BP 126/74
== END 2022-07-09 07:07 | disposition home or self-care (01) ==
LOC: ED 23:49
DX: N32.89 Other specified disorders of bladder (principal); I10 Essential (primary) hypertension
CPT/HCPCS: 36415; 51702; 51798; 80053; 81001; 81003; 83690; 85025; 87086; 99284

== ENCOUNTER 2022-07-09 18:27 | Emergency (ER) | payer MEDICARE ==
--- NOTE | 2022-07-09 19:19 | ED Physician Documentation ---
History of Present Illness - Stated complaint Stated Complaint: MALE - Chief complaint Chief Complaint: General - History obtained from History obtained from: Patient - History of Present Illness Timing: Today Pain level max: 0 Pain level now: 0 - Additonal information Additional information: 86 year old male with a marquez catheter in place. concerned about The urine not draining from the tube Marquez. He wants to ensure the catheter is functioning correctly. No fevers. No chills. No abdominal pain. Review of Systems Constitutional: denies: Fever GI: denies: Vomiting Skin: denies: Rash PD PAST MEDICAL HISTORY - Past Medical History Cardiovascular: Hypertension Respiratory: None, Other Neuro: None Endocrine/Autoimmune: None GI: None : Benign prostate hypertrophy, Kidney stones, Other HEENT: None Psych: Depression Musculoskeletal: Gout Derm: Other - Past Surgical History Past Surgical History: Yes General: Colonoscopy - Present Medications Home Medications: Ambulatory Orders Medication Instructions Recorded Confirmed Aspirin Chewable [[place] 324 mg PO ONCE 01/12/14 06/17/22 Aspirin] Losartan [Cozaar] 100 mg PO DAILY 01/12/14 06/17/22 Potassium Chloride [Micro-K] 20 meq PO 0800 01/12/14 06/17/22 Pravastatin Sodium 40 mg PO DAILY 01/12/14 06/17/22 Triamterene/Hydrochlorothiazid 1 tab PO DAILY 01/12/14 06/17/22 [Triamterene-Hctz 37.5-25 mg Tb] Vit D3/Folic Acid/B2/B6/B12 2,000 mg PO DAILY 01/12/14 06/17/22 [Folgard Tablet] allopurinoL [Allopurinol] 300 mg PO DAILY 01/12/14 06/17/22 Colchicine [Colcrys] 0.6 mg PO TID PRN 06/17/22 06/17/22 Docusate Sodium [Dulcolax Stool 100 mg PO BID #14 cap 06/17/22 Softener] Finasteride [Proscar] 5 mg PO DAILY 06/17/22 06/17/22 Metoprolol Tartrate [Lopressor] 25 mg PO DAILY 06/17/22 06/17/22 Oxycodone HCl/Acetaminophen 1 each PO Q6H PRN #10 tablet 06/17/22 [Percocet 5-325 mg Tablet] Sulfamethox/Trimeth 800/160 1 each PO BID #14 tablet 06/17/22 [Bactrim Ds 800/160] - Allergies Allergies/Adverse Reactions: Allergies Allergy/AdvReac Type Severity Reaction Status Date / Time clonidine AdvReac Severe Paranoia Verified 07/09/22 18:31 terazosin AdvReac Intermediate Dizziness Verified 07/09/22 18:31 - Social History Does the pt smoke?: No Smoking Status: Never smoker Does the pt drink ETOH?: Yes Does the pt have substance abuse?: No - Immunizations Immunizations are current?: Yes PD ED PE NORMAL - Vitals Vital signs reviewed: Yes - General General: Alert and oriented X 3, No acute distress - HEENT HEENT: Moist mucous membranes - Neck Neck: Supple, no meningeal sign - Cardiac Cardiac: RRR - Respiratory Respiratory: No respiratory distress, Clear bilaterally - Abdomen Abdomen: Soft, Non tender, Non distended - Derm Derm: Warm and dry - Neuro Neuro: Alert and oriented X 3 - Psych Psych: Normal mood, Normal affect Results - Vitals Vitals: Vital Signs - 24 hr 07/09/22 07/09/22 18:31 19:25 Temperature 36.4 C L Heart Rate 112 H 87 Respiratory 18 16 Rate Blood Pressure 136/86 H 126/78 O2 Saturation 99 98 Oxygen O2 Source Room air PD MEDICAL DECISION MAKING - ED course Complexity details: considered differential, d/w patient ED course: Patient is well-appearing, nontoxic. Afebrile. Catheter appears to be functioning correctly. The bladder is empty on ultrasound. The urine is draining without any difficulty through the catheter to the leg bag. Patient will follow up with his doctor for further care. No evidence of obstruction. This document was made in part using voice recognition software. While efforts are made to proofread this document, sound alike and grammatical errors may occur. Departure - Departure Disposition: 01 Home, Self Care Clinical Impression: Marquez catheter in place Condition: Good Instructions: ED Catheter Care Marquez Follow-Up: CATHERINE FANG MD [Primary Care Provider] - Comments: Please follow-up with your doctor as previously instructed. Please return if you worsen Your catheter is functioning correctly Please make sure you are drinking plenty of water. Discharge Date/Time: 07/09/22 19:29
[2022-07-09 19:25] VITALS: BP 126/78
== END 2022-07-09 19:29 | disposition home or self-care (01) ==
LOC: ED 18:27
DX: Z03.89 Encounter for observation for other suspected diseases and conditions ruled out (principal)
CPT/HCPCS: 99281

== ENCOUNTER 2022-07-13 05:54 | Emergency (ER) | payer MEDICARE ==
[2022-07-13 06:05] VITALS: BP 162/79
--- NOTE | 2022-07-13 06:07 | ED Physician Documentation ---
PD HPI MALE - Stated complaint Stated Complaint: MALE - Chief complaint Chief Complaint: General - History obtained from History obtained from: Patient - History of Present Illness Timing - onset: How many days ago (4) Timing - details: Intermittant Pain level now: 0 Associated symptoms: Lawrence problem Recently seen: Emergency Dept - Additional information Additional information: patient had cystoscopic removal of prostate growth last week, then came to this ED 2 days later due to penile pain which resolved with placement of a coude catheter. The pain he was having was suspected to be bladder spasms. He returned to this ED the following day with concerns that the catheter was malfunctioning; specifically, he was worried the urine was collecting in the catheter tube but not draining into the bag. The ED MD note indicates that the catheter , tubing, and bag were functioning correctly and patient was reassured. He returns today with same concern. He denies any pain, but he says the urine is again collecting in the tube leading to the catheter bag but that it is not draining into the bag. However, he also describes setting his alarm to wake him every two hours so that he can drain the bag of urine. He says that shortly before coming to ED, ur ine was running down my leg, unclear where this was coming from. Review of Systems Constitutional: denies: Fever GI: denies: Abdominal Pain PD PAST MEDICAL HISTORY - Past Medical History Cardiovascular: Hypertension Respiratory: None, Other Neuro: None Endocrine/Autoimmune: None GI: None : Benign prostate hypertrophy, Kidney stones, Other HEENT: None Psych: Depression Musculoskeletal: Gout Derm: Other - Past Surgical History Past Surgical History: Yes General: Colonoscopy - Present Medications Home Medications: Ambulatory Orders Medication Instructions Recorded Confirmed Aspirin Chewable [[place]il[place] 324 mg PO ONCE 01/12/14 06/17/22 Aspirin] Losartan [Cozaar] 100 mg PO DAILY 01/12/14 06/17/22 Potassium Chloride [Micro-K] 20 meq PO 0800 01/12/14 06/17/22 Pravastatin Sodium 40 mg PO DAILY 01/12/14 06/17/22 Triamterene/Hydrochlorothiazid 1 tab PO DAILY 01/12/14 06/17/22 [Triamterene-Hctz 37.5-25 mg Tb] Vit D3/Folic Acid/B2/B6/B12 2,000 mg PO DAILY 01/12/14 06/17/22 [Folgard Tablet] allopurinoL [Allopurinol] 300 mg PO DAILY 01/12/14 06/17/22 Colchicine [Colcrys] 0.6 mg PO TID PRN 06/17/22 06/17/22 Docusate Sodium [Dulcolax Stool 100 mg PO BID #14 cap 06/17/22 Softener] Finasteride [Proscar] 5 mg PO DAILY 06/17/22 06/17/22 Metoprolol Tartrate [Lopressor] 25 mg PO DAILY 06/17/22 06/17/22 Oxycodone HCl/Acetaminophen 1 each PO Q6H PRN #10 tablet 06/17/22 [Percocet 5-325 mg Tablet] Sulfamethox/Trimeth 800/160 1 each PO BID #14 tablet 06/17/22 [Bactrim Ds 800/160] - Allergies Allergies/Adverse Reactions: Allergies Allergy/AdvReac Type Severity Reaction Status Date / Time clonidine AdvReac Severe Paranoia Verified 07/13/22 06:05 terazosin AdvReac Intermediate Dizziness Verified 07/13/22 06:05 - Social History Does the pt smoke?: No Smoking Status: Never smoker Does the pt drink ETOH?: Yes Does the pt have substance abuse?: No - Immunizations Immunizations are current?: Yes PD ED PE NORMAL - Vitals Vital signs reviewed: Yes - General General: Alert and oriented X 3, No acute distress, Well developed/nourished - Abdomen Abdomen: Soft, Non tender, Non distended PD ED PE EXPANDED - Male Male : Other (catheter in place. there is urine in the translucent tubing, scant urine noted in bag. ) Results - Vitals Vitals: Oxygen O2 Source Room air PD MEDICAL DECISION MAKING - ED course Complexity details: reviewed old records, considered differential, d/w patient ED course: There is urine in the translucent tube of the catheter collection system, scant urine in the bag; he is concerned that this indicates malfunction of the collection system because the urine should be draining into the bag. He has less than 10 cc on bladder scan and is in NAD. I tried to apply pressure to the tubing so as to milk the urine into the bag, but this immediately caused discomfort. The coude catheter is left in place but new tubing and bag are placed using sterile technique. On reevaluation, there is 20-30 cc urine in the bag, with urine again collecting in the translucent tubing. Using the bag that was replaced, I showed him how slight buildup needs to occur for sufficient pressure to overcome the plastic sleeve inside of the bag that functions as a check valve to prevent backflow. Departure - Departure Disposition: 01 Home, Self Care Clinical Impression: Lawrence catheter in place Condition: Good Instructions: ED Catheter Care Lawrence Comments: The catheter tubing and bag were replaced (the highest part of the catheter, the red part, was left in place), and the catheter is draining appropriately. Discharge Date/Time: 07/13/22 08:25
== END 2022-07-13 08:25 | disposition home or self-care (01) ==
LOC: ED 05:54
DX: Z46.6 Encounter for fitting and adjustment of urinary device (principal); I10 Essential (primary) hypertension; N40.0 Benign prostatic hyperplasia without lower urinary tract symptoms
CPT/HCPCS: 99281